=== PATIENT | female | born 1970 | race Caucasian/White ===

== ENCOUNTER → 2022-06-01 11:11 | Outpatient (CLI) | payer OTHER, SELFPAY ==
[2022-06-01 12:30] LABS: COVID19 -Nasal RAPID Negative (Negative)
== END ==
PROVIDERS: PCP Nurse Practitioner; Visit Provider Surgery
DX: Z01.812 Encounter for preprocedural laboratory examination (principal); Z20.822 Contact with and (suspected) exposure to COVID-19
CPT/HCPCS: 87635; C9803

== ENCOUNTER 2022-06-04 07:33 | Day surgery (SDC) | payer OTHER, SELFPAY ==
[2022-06-04 08:02] VITALS: BMI 35.1
[2022-06-04 08:09] VITALS: BP 120/70; PULSE 91; RESP 18; TEMP 35.9; O2SAT 97
[2022-06-04] MEDS: SODIUM CHLORIDE 0.9% 1,000 ML 84 ML IV (08:12)
--- NOTE | 2022-06-04 08:37 | PM.HP.1 ---
History of Present Illness History of Present Illness Date Patient Seen: 06/04/22 Time Patient Seen: 08:37 Chief complaint: SDC Narrative: I reviewed my recent office note. Patient struggles with constipation. She is indicated for colon cancer screening. Patient History Family & Social History Social History: household members spouse Tobacco & Substance use: Smoking Status Never smoker alcohol intake never Substance Use Type does not use Meds Home Medications and Allergies Home Medications Medication Instructions Recorded Confirmed Type ASPIRIN (Aspirin Low Dose) 81 mg PO Q DAY ##0 03/06/10 06/04/22 History Aripiprazole (Abilify) 10 mg PO Q DAY ##0 03/06/10 History CLONAZEPAM (Klonopin) 2 mg PO BEDTIME ##0 03/06/10 06/04/22 History [TIZANIDINE HCL] 4 mg PO TID ##0 03/06/10 06/04/22 History amitriptyline 75 mg tablet 150 mg PO HS ##0 03/06/10 06/04/22 History lamotrigine 200 mg tablet 200 mg PO HS ##0 03/06/10 06/04/22 History albuterol sulfate 90 mcg/actuation 1 puff INH TID ##0 10/03/16 06/04/22 History aerosol inhaler (Proventil HFA) fluticasone 100 mcg-salmeterol 50 1 puff BID ##0 10/03/16 06/04/22 History mcg/dose blistr powdr for inhalation (Advair Diskus) lithium carbonate 300 mg tablet 600 mg PO HS ##0 10/03/16 06/04/22 History quetiapine 200 mg tablet,extended 200 mg PO HS ##0 10/03/16 06/04/22 History release 24 hr (Seroquel XR) tamsulosin 0.4 mg capsule (Flomax) 0.4 mg PO BID ##0 10/03/16 06/04/22 History acetaminophen 325 mg rectal ##0 10/05/16 History suppository (Acephen) [id number]-yyyxzmoz 1 cap PO Q6H PRN Migraine Headache 06/04/22 06/04/22 History 50 mg-300 mg-40 mg capsule levothyroxine 88 mcg tablet 88 mcg PO DAILY 06/04/22 06/04/22 History linaclotide 290 mcg capsule 290 mcg PO DAILY 06/04/22 06/04/22 History (Linzess) montelukast 10 mg tablet 10 mg PO 3XD 06/04/22 06/04/22 History omeprazole 20 mg capsule,delayed 20 mg PO DAILY 06/04/22 06/04/22 History release tiotropium bromide 1.25 2 puff inhalation DAILY 06/04/22 06/04/22 History mcg/actuation mist for inhalation (Spiriva Respimat) Allergies Allergy/AdvReac Type Severity Reaction Status Date / Time shellfish derived Allergy Severe Anaphylaxis Verified 06/04/22 07:48 Penicillins [PENICILLINS] Allergy Mild RASH Unverified 12/25/17 12:15 bromocriptine [From PARLODEL] AdvReac Mild GI UPSET Unverified 12/25/17 12:15 metronidazole [From FLAGYL] AdvReac Mild N/V Unverified 12/25/17 12:15 Seafood Allergy Severe Anaphylaxis Uncoded 06/04/22 07:48 Review of Systems Review of Systems ROS: Yes All systems reviewed with the patient and are negative except as otherwise documented Exam Vital Signs (past 8 hours): - 06/04/22 08:09 Temperature 96.6 F L Pulse Rate 91 H Respiratory Rate 18 Blood Pressure 120/70 Pulse Oximetry 97 Oxygen Delivery Method Room Air Oxygen Delivery Method Room Air Const General: cooperative HENMT Head: normal to inspection Eyes General: appearance normal, both eyes and all related structures Neck Neck: normal visual inspection Chest Chest: normal inspection of the chest Resp Effort & Inspection: normal respiratory effort Cardio Rate: regular rate GI Inspection: normal to inspection Skin General: no rashes or lesions noted Neuro General: patient alert and patient awake Extrem General: normal to inspection and no pedal edema Psych Appearance: grossly normal Assessment & Plan Assessment & Plan narrative: 51-year-old female indicated for colon cancer screening. Colonoscopy is pursued today. Time Spent With Patient Critical Care time: I spent a total of [] minutes of critical care time on this patient's care today; this time is exclusive of procedural time.
--- NOTE | 2022-06-04 08:39 | PM.PREOP ---
Pre-operative Note COVID-19 COVID-19 status: Negative Result date/Date tested (Pos, Neg/Pending): 06/01/22 Criteria for continued procedure: Possibility delay results in more complex future surgery or treatment Interval Note History & Physical reviewed/Exam performed by Physician: Yes Changes to H&P: No ASA Class (for procedural sedation): II
--- NOTE | 2022-06-04 09:56 | PM.OP.COLON ---
Operative Date/Time/Diagnoses Date of procedure: 06/04/22 Time of procedure: 09:56 Pre-op diagnosis: Constipation. Colon cancer screening. Procedure & Clinicians Study performed: Colonoscopy Same procedure as scheduled: Yes Indications: Constipation colon cancer screening. Surgeon: Emile Bautista Procedure Notes SCOAP/Timeout: Done Procedure in detail: After the risks and benefits were explained, written and verbal informed consent was obtained. The patient was brought into the procedure room and placed into the left lateral decubitus position. Please see nurse property management intern notes for sedation details. Digital rectal examination was accomplished. The scope was introduced into the patient and advanced under direct visualization to the cecum as identified by the appendiceal orifice and ileocecal valve. The scope was slowly withdrawn to carefully examine the mucosa for any defects or lesions. Comprehensive imaging was accomplished throughout the rectum including the dentate line. The colon was decompressed, the scope was then removed from the patient who tolerated the procedure well. Pediatric colonoscope Bowel prep fair Scope withdrawal time: 7 minutes Sedation minutes: 25 Specimen(s): none sent Complications: none Impression: Patient had a very tortuous colon. There was marked redundancy. Considerable scope looping was quite challenging. Abdominal pressure and use of the stiffening micaela were required. There were some areas that I could not get fully cleansed from residual stool debris. In the cecum, some of this debris clogging the scope requiring heavy irrigation to rectify the situation. Within the limitations of bowel prep I did not appreciate any significant polyps no inflammation. On digital rectal examination prior to sedation, the patient had a minimal anal wink. Tone was within normal limits at rest. The patient had a slightly reduced squeeze strength. During simulated defecation there were times that I felt the external anal sphincter may be kirsten to some degree. Endoscopic diagnosis 1. Tortuous and redundant colon 2. Mild subjective anal sphincter muscular dysfunction Post-procedure Plan for aftercare: 1. Repeat colonoscopy within 5 years. (bowel prep was not perfect today) 2. Continue aggressive bowel regimen 3. Follow-up on results in GI clinic. 4. Contingent on the ongoing response, anorectal manometry and even biofeedback training may be something to consider. Disposition: PACU
[2022-06-04 09:58] VITALS: BP 115/74; PULSE 73; RESP 14; TEMP 36.4; O2SAT 100
[2022-06-04 10:03] VITALS: BP 118/84; PULSE 71; RESP 18; O2SAT 100
[2022-06-04 10:08] VITALS: BP 120/83; PULSE 82; RESP 18; O2SAT 99
[2022-06-04 10:12] VITALS: BP 111/80; PULSE 70; RESP 12; TEMP 36.4; O2SAT 100
== END 2022-06-04 10:29 | disposition home or self-care (01) ==
PROVIDERS: PCP Nurse Practitioner; Referring Provider Internal Medicine Gastroenterology; Visit Provider Internal Medicine Gastroenterology
PROC: 0DJD8ZZ Inspection of Lower Intestinal Tract, Via Natural or Artificial Opening Endoscopic (ICD-10-PCS; CPT 45378; principal; 2022-06-04 09:00)
DX: Z12.11 Encounter for screening for malignant neoplasm of colon (principal); K59.89 Other specified functional intestinal disorders; K59.09 Other constipation
CPT/HCPCS: 45378; J2704

== ENCOUNTER → 2023-07-10 16:37 | Outpatient (CLI) | payer OTHER, SELFPAY ==
[2023-07-10 18:31] LABS: Add Manual Diff / Slide Review NO; Basophils Absolute Auto 0 /uL (0-100); Basophils Percent Auto 0.4 % (0-2); Eosinophils Absolute Auto 100 /uL (0-450); Hematocrit 37.5 % (36-46); Hemoglobin 12.8 g/dL (12.0-16.0); Lymphocytes Absolute Auto 2600 /uL (1100-4500); Lymphocytes Percent Auto 30.5 % (25-40); Mean Corpuscular HGB Conc 34.2 % (30-36); Mean Corpuscular Hemoglobin 31.6 PG (26-34); Mean Corpuscular Volume 92.5 fL (80-100); Monocytes Absolute Auto 500 /uL (0-900); Monocytes Percent Auto 5.8 % (3-14); Neutrophils Absolute Auto 5300 /uL (1500-7000); Neutrophils Percent Auto 62.3 % (50-75); Platelet Count 385 X10^3/uL (150-400); Red Blood Cell Count 4.05 X10^6/uL (4.0-5.2); Red Cell Distribution Width 12.6 % (11.6-14.8); White Blood Cell Count 8.5 X10^3/uL (4.5-11.0)
[2023-07-17 06:50] LABS: Aspergillus fumigatus IgE <0.10 kU/L (Class 0)
[2023-07-17 15:52] LABS: Immunoglobulin E 26 IU/mL (6-495)
== END ==
PROVIDERS: PCP Nurse Practitioner; Referring Provider Internal Medicine; Visit Provider Internal Medicine
DX: J45.50 Severe persistent asthma, uncomplicated (principal)
CPT/HCPCS: 36415; 82785; 85025; 86003; 95012; 99214; A4617

== ENCOUNTER → 2023-09-02 12:49 | Outpatient (CLI) | payer OTHER, SELFPAY | PROVIDERS: PCP Nurse Practitioner; Referring Provider Internal Medicine; Visit Provider Internal Medicine | DX: J45.50 Severe persistent asthma, uncomplicated (principal); Z87.891 Personal history of nicotine dependence | CPT/HCPCS: 94060; 94726; 94729 ==